=== PATIENT | male | born 1945 | race Caucasian/White ===

== ENCOUNTER 2021-04-01 15:33 | Observation (INO) | payer MEDICARE ==
[~2021-04-01] VITALS: Ht 182.9 cm; Wt 75.0 kg
[2021-04-01 16:29] LABS: BASOPHILS % (AUTO) 0.4 % (0-1); EOSINOPHILS # (AUTO) 0.1 X10'3 (0-0.9); EOSINOPHILS % (AUTO) 1.4 % (0-6); HEMATOCRIT 35.2 % (42.0-52.0); HEMOGLOBIN 12.4 g/dl (14.0-17.9); LYMPHOCYTES % (AUTO) 21.9 % (21-51); MEAN CORPUSCULAR HEMOGLOBIN 32.5 PG (27.0-31.0); MEAN CORPUSCULAR HGB CONC 35.2 g/dL (33.0-36.5); MEAN CORPUSCULAR VOLUME 92.4 FL (78-98); MEAN PLATELET VOLUME 7.6 FL (7.4-10.4); MONOCYTES # (AUTO) 0.4 X10'3 (0-0.9); MONOCYTES % (AUTO) 8.6 % (2-12); NEUTROPHILS # (AUTO) 3.2 X10'3 (1.8-7.7); NEUTROPHILS % (AUTO) 67.7 % (42-75); PLATELET COUNT 187 X10'3 (140-440); RED CELL DISTRIBUTION WIDTH 12.8 % (11.5-14.5); WHITE BLOOD COUNT 4.8 X10'3 (4.5-11.0)
[2021-04-01 16:32] LABS: ALBUMIN 3.1 G/DL (3.4-5.0); ANION GAP 8 (8-16); BLOOD UREA NITROGEN 17 MG/DL (7-18); BUN/CREATININE RATIO 16.7 (5.4-32.0); CALCIUM 7.8 MG/DL (8.5-10.1); CHLORIDE 110 MMOL/L (99-107); CREATININE 1.02 MG/DL (0.60-1.10); GLUCOSE 152 MG/DL (70-104); POTASSIUM 3.8 MMOL/L (3.5-5.1); SODIUM 144 MMOL/L (135-145); TOTAL CARBON DIOXIDE 25.9 MMOL/L (24-32); TROPONIN I < 0.04 NG/ML (0.0-0.05); eGFR 71 ML/MIN
--- NOTE | 2021-04-01 19:06 | NUR ---
UPON INTIAL ASSESSMENT PT IS IN NAD; VSS AND PLACED ON [employer]MENT [employer]; PT HAS NO C/O; DENIES CP AT THIS TIME HE WAS HAVING THAT EARLIER; DENIES TAKING ANY HOME MEDS; PT HAS BEEN PROVIDED CALL LIGHT; WILL CTM AND GET COVID SWAB
[2021-04-01] MEDS ORDERED: potassium Cl 40MEQ/1/2NS 520ml 520 ML IV PRN ×2 (20:20)
[2021-04-01] MEDS ORDERED: magnesium Cl slow-release 64mg tablet PO PRN (20:20)
[2021-04-01] MEDS ORDERED: magnesium 2GM in 50ml NS 50 ML IV PRN (20:20)
[2021-04-01] MEDS ORDERED: normal saline 1000ml 1,000 ML IV SCH (20:20)
[2021-04-01] MEDS ORDERED: ondansetron/PF 4mg/2ml inj IV PRN (20:20)
[2021-04-01] MEDS ORDERED: PERFLUTREN PROTEIN-A MICROSPHR (Optison) 0.22 MG/ML 3ML VIAL IV PRN (20:20)
[2021-04-01] MEDS ORDERED: magnesium 4gm in 100ml NS 100 ML IV PRN (20:20)
[2021-04-01] MEDS ORDERED: potassium Cl 20 mEq SR tablet PO PRN ×2 (20:20)
[2021-04-01] MEDS ORDERED: NO HOME MEDS (20:27)
[2021-04-01] MEDS ORDERED: temazepam 15mg capsule PO PRN (21:00)
[2021-04-02] VITALS (11 sets, daily range): BP systolic 92–123; BP diastolic 44–79
--- NOTE | 2021-04-02 01:38 | NUR ---
Pt ambulated to restroom; Still denies chest pain; in NAD; placed back on monitor
[2021-04-02 06:23] LABS: BASOPHILS % (AUTO) 0.4 % (0-1); EOSINOPHILS # (AUTO) 0.2 X10'3 (0-0.9); EOSINOPHILS % (AUTO) 2.9 % (0-6); HEMATOCRIT 40.7 % (42.0-52.0); HEMOGLOBIN 14.1 g/dl (14.0-17.9); LYMPHOCYTES # (AUTO) 1.7 X10'3 (1.1-4.8); LYMPHOCYTES % (AUTO) 28.4 % (21-51); MEAN CORPUSCULAR HEMOGLOBIN 32.3 PG (27.0-31.0); MEAN CORPUSCULAR HGB CONC 34.8 g/dL (33.0-36.5); MEAN PLATELET VOLUME 7.5 FL (7.4-10.4); MONOCYTES # (AUTO) 0.5 X10'3 (0-0.9); MONOCYTES % (AUTO) 8.1 % (2-12); NEUTROPHILS # (AUTO) 3.5 X10'3 (1.8-7.7); NEUTROPHILS % (AUTO) 60.2 % (42-75); PLATELET COUNT 205 X10'3 (140-440); RED BLOOD COUNT 4.37 X10'6 (4.70-6.10); WHITE BLOOD COUNT 5.9 X10'3 (4.5-11.0)
[2021-04-02 06:30] LABS: ALBUMIN 3.7 G/DL (3.4-5.0); ANION GAP 9 (8-16); BLOOD UREA NITROGEN 11 MG/DL (7-18); BUN/CREATININE RATIO 12.2 (5.4-32.0); CALCIUM 8.3 MG/DL (8.5-10.1); CHLORIDE 110 MMOL/L (99-107); CHOL/HDL RATIO 4.2 (0.00-4.99); CHOLESTEROL 190 MG/DL (0-200); GLUCOSE 85 MG/DL (70-104); HDL CHOLESTEROL 45 MG/DL (35-60); LDL CHOLESTEROL 128 MG/DL (50-100); MAGNESIUM 2.2 MG/DL (1.5-2.4); POTASSIUM 3.9 MMOL/L (3.5-5.1); SODIUM 144 MMOL/L (135-145); TOTAL CARBON DIOXIDE 25.5 MMOL/L (24-32); TRIGLYCERIDES 78 MG/DL (20-135); eGFR 82 ML/MIN
[2021-04-02] MEDS ORDERED: heparin, porcine 5000 units/ml vial SQ SCH (08:00)
[2021-04-02] MEDS ORDERED: K and/or MAG REPLACEMENT MC SCH (08:00)
[2021-04-02] MEDS ORDERED: regadenoson 0.4mg/5ml syringe IV ONE (12:00)
[2021-04-02] MEDS ORDERED: aminophylline inj. 10 ML IV ONE (12:01)
--- NOTE | 2021-04-02 12:09 | NUR ---
Pt is out of room having a [employer].
== END 2021-04-02 13:58 | disposition home or self-care (01) ==
LOC: ER 15:34 → ED HOLD 20:19
PROVIDERS: ADMIT Internal Medicine; ATTEND Internal Medicine
DX: R07.89 Other chest pain (principal); R42 Dizziness and giddiness; Z20.822 Contact with and (suspected) exposure to COVID-19; Z79.899 Other long term (current) drug therapy
CPT/HCPCS: 36415; 71045; 78452; 80048; 80061; 83735; 84484; 85025; 87635; 93005; 93017; 93306; 96360; 96361; 99285; A9500; C9803; G0378; J0280; J2785; J7030